=== PATIENT | male | born 2000 | race Caucasian/White ===

== ENCOUNTER 2021-05-20 10:06 | Day surgery (SDC) | payer OTHER, MEDICAID, SELFPAY ==
[2021-05-20 10:18] VITALS: BP 132/83; PULSE 91; RESP 18; TEMP 37.2; O2SAT 97; BMI 27.8
[2021-05-20] MEDS: LACTATED RINGERS 1,000 ML 200 ML IV (10:46)
--- NOTE | 2021-05-20 11:04 | PM.HP.1 ---
History of Present Illness History of Present Illness Date Patient Seen: 05/20/21 Time Patient Seen: 11:04 Chief complaint: SDC Narrative: 20-year-old male with left-sided abdominal pain and intermittent blood per rectum here for diagnostic colonoscopy. Please refer to the H& P from April for further detail. Since he was last seen his abdominal pain has improved he is rarely having any blood per rectum. Patient History Medical History Pneumonia Family & Social History Tobacco & Substance use: Tobacco type cigarettes Smoking Status Former smoker alcohol intake current alcohol intake frequency 0-2 drinks per day Substance Use Type does not use Meds Home Medications and Allergies Home Medications Medication Instructions Recorded Confirmed Type No Known Home Medications 04/18/21 04/18/21 History Allergies Allergy/AdvReac Type Severity Reaction Status Date / Time morphine AdvReac Verified 05/20/21 10:12 Exam Vital Signs (past 8 hours): - 05/20/21 10:18 Temperature 99 F Pulse Rate 91 H Respiratory Rate 18 Blood Pressure 132/83 Pulse Oximetry 97 Oxygen Delivery Method Room Air Narrative Exam Narrative: Constitutional-he is oriented to person, place and time. No apparent distress Cardiovascular- regular rate, no peripheral edema Pulmonary-unlabored respiratory effort, no audible wheezing Abdominal-soft, non-tender, non-distended Assessment & Plan Assessment & Plan narrative: The patient requires diagnostic colonoscopy secondary to abdominal pain and blood per rectum. Technical details were discussed. Risks, benefits, alternatives explained. Risks including but not limited to myocardial infarction, aspiration, bleeding, pain, missed lesion, incomplete examination, need for further radiographic studies, colonic perforation, and need for major abdominal surgery were discussed. All questions were answered to their satisfaction, and they are in agreement with this plan. Time Spent With Patient Critical Care time: I spent a total of [] minutes of critical care time on this patient's care today; this time is exclusive of procedural time.
[2021-05-20] MEDS: fentaNYL 250 MCG/5 ML INJ IV (11:15)
[2021-05-20] MEDS: MIDAZOLAM 5 MG/5 ML VIAL IV (11:15)
--- NOTE | 2021-05-20 11:33 | P.OP.COLON_ITS ---
Operative Date/Time/Diagnoses Date of procedure: 05/20/21 Time of procedure: 11:33 Pre-op diagnosis: Abdominal pain Post-op diagnosis: other (Normal colonoscopy) Procedure & Clinicians Study performed: Colonoscopy Same procedure as scheduled: Yes Indications: Abdominal pain Surgeon: Malick Isabel Procedure Notes Procedure in detail: Medications: Conscious sedation using 7mg IV midazolam and 150mcg IV of fentanyl The history and physical was performed/updated and the patient is ASA class is 1. The procedure was discussed in detail with the patient. Potential risks complications including infection, bleeding, missed diagnosis, perforation, need for surgery, and were explained. Their questions were answered and informed consent was obtained. Patient was brought to the procedure room and placed standard monitoring equipm ent. The patient's vital signs were monitored continuously throughout the entire procedure. Prior to starting time-out was performed. The patient was placed in the left lateral recumbent position. Procedural sedation was administered. Examination began with a thorough inspection of the perianal area there was no evidence of fissures, fistulae, external hemorrhoids or cutaneous malignancy. The colonoscopy scope was then placed into the anal canal and was advanced to the cecum, which was identified by the ileocecal valve, the appendiceal orifice and the confluence of the taenia. The scope was then slowly withdrawn examining colon thoroughly in all directions, irrigating it of any residual stool. FINDINGS 1. No masses polyps or inflammation 2. Normal healthy colon The patient tolerated the procedure well. They will be discharged once criteria are met. The prep was of good/excellent quality. The withdrawl time was 6minutes. The sedation time was 20minutes. Findings: colitis Specimen(s): none sent Complications: none Impression: Normal colonoscopy Post-procedure Recommendations: High fiber diet Disposition: same day surgery
[2021-05-20 11:38] VITALS: BP 107/70; PULSE 76; RESP 15; TEMP 36.6; O2SAT 97
[2021-05-20 11:42] VITALS: BP 116/80; PULSE 86; RESP 16; O2SAT 97
[2021-05-20 11:47] VITALS: BP 116/80; PULSE 76; RESP 16; O2SAT 97
[2021-05-20 12:15] VITALS: BP 129/76; PULSE 711; RESP 16; TEMP 36.7; O2SAT 99
--- NOTE | 2021-05-20 16:25 | SUR.PHASEII ---
Late entry: Pt ready to go, left unit in stable condition.
== END 2021-05-20 12:25 | disposition home or self-care (01) ==
PROVIDERS: PCP Physician Assistant; Referring Provider Surgery; Visit Provider Surgery
PROC: 0DJD8ZZ Inspection of Lower Intestinal Tract, Via Natural or Artificial Opening Endoscopic (ICD-10-PCS; CPT 45378; principal; 2021-05-20 11:30)
DX: R10.9 Unspecified abdominal pain (principal); K62.5 Hemorrhage of anus and rectum
CPT/HCPCS: 45378; 99152; J2250; J3010